=== PATIENT | female | born 1990 | race Caucasian/White ===

== ENCOUNTER 2018-06-28 08:27 | Emergency (ER) | payer OTHER ==
[~2018-06-28] VITALS: Ht 154.9 cm; Wt 113.6 kg
[2018-06-28] MEDS ORDERED: ACETAMINOPHEN 500 MG TABLET PO ONE (10:45)
[2018-06-28] MEDS ORDERED: METHOCARBAMOL 750 MG TABLET PO ONE (10:45)
[2018-06-28] MEDS ORDERED: KETOROLAC TROMETHAMINE 60 MG/2 ML VIAL IM ONE (10:45)
[2018-06-28 13:34] VITALS: BP 137/88
== END 2018-06-28 13:38 | disposition home or self-care (01) ==
LOC: EMS 08:29
DX: S39.012A Strain of muscle, fascia and tendon of lower back, initial encounter (principal); F17.210 Nicotine dependence, cigarettes, uncomplicated; J45.909 Unspecified asthma, uncomplicated; X50.9XXA Other and unspecified overexertion or strenuous movements or postures, initial encounter; Y93.89 Activity, other specified; Y92.89 Other specified places as the place of occurrence of the external cause; Y99.8 Other external cause status
CPT/HCPCS: 72100; 81025; 96372; 99283; 99406; J1885